=== PATIENT | male | born 1960 | race Caucasian/White ===

== ENCOUNTER 2017-09-02 09:59 | Outpatient (CLI) | payer OTHER ==
--- NOTE | 2017-09-02 12:43 | MRI ---
MRI OF THE RIGHT SHOULDER WITHOUT CONTRAST: INDICATIONS: Right shoulder pain without injury. FINDINGS: There is a high grade partial-thickness tear involving the anterior to mid supraspinatus, at the foot print, involving approximately 75% of the tendon thickness. The partial-thickness tear measures appr oximately 2.1 x 2.1 cm in greatest mediolateral and AP dimensions respectively. There is moderate te ndinosis of the infraspinatus. The biceps tendon is located. There is a heterogeneous appearance of the biceps anchor and proximal interarticular biceps tendon. There is a degenerative subchondral cyst-like abnormality seen involvi ng the superior glenoid, just subjacent to the labrum. There is abnormal linear T2 signal seen withi n the posterior-superior aspect of the glenoid labrum, best seen on image 19 of series 5. There is a bnormal linear signal involving the posterior glenoid labrum, best seen on image 20 of series 4. There is moderate to severe chondrosis involving the central and posterior aspects of the glenoid art icular surface. There is mild AC joint osteoarthrosis. No muscular atrophy is evident. The inferior glenohumeral la bral ligamentous complex appears within normal limits. IMPRESSION: 1. High grade partial-thickness articular surface tear of the anterior to mid supraspinatus at the f ootprint. 2. Moderate supraspinatus and infraspinatus tendinosis. 3. Prominent intermediate to high T2 signal involving the superior glenoid labrum with a more vertic ally oriented linear directional tear seen involving the posterior-superior and posterior labrum, con sistent with a type II superior labrum anterior and posterior tear. The tear extends from approximat jaime the 2 o'clock position through the 7 to 8 o'clock position of the shoulder joint. 4. Moderate to severe chondrosis involving the central to posterior aspect of the glenoid. 5. Mild acromioclavicular joint osteoarthrosis. POS: JACOB
== END 2017-09-02 10:00 | disposition home or self-care (01) ==
LOC: SCSMRI 09:59
PROVIDERS: ATTEND Orthopaedic Surgery
DX: M25.511 Pain in right shoulder (principal); M19.011 Primary osteoarthritis, right shoulder; M75.101 Unspecified rotator cuff tear or rupture of right shoulder, not specified as traumatic

== ENCOUNTER 2022-08-20 14:52 | Outpatient (CLI) | payer BC | END 2022-08-20 14:53 | disposition home or self-care (01) | LOC: BICRAD 14:52 | PROVIDERS: ATTEND Family Medicine | DX: M79.642 Pain in left hand (principal); S62.325A Displaced fracture of shaft of fourth metacarpal bone, left hand, initial encounter for closed fracture ==